=== PATIENT | female | born 1995 | race Hispanic/Latino ===

== ENCOUNTER 2022-10-29 09:10 | Inpatient (IN) | payer SELFPAY ==
[2022-10-29] VITALS (16 sets, daily range): BP systolic 94–135; BP diastolic 53–86; PULSE 59–77; RESP 14–18; TEMP 36.2–36.9; O2SAT 96–100; BMI 27.6
[2022-10-29] MEDS: Lactated Ringers 1,000 ML 999 ML IV (10:15)
--- NOTE | 2022-10-29 10:48 | NURSING ---
Aye [id number]
--- NOTE | 2022-10-29 10:49 | NURSING ---
Emmett [id number]
[2022-10-29] MEDS: Acetaminophen 500 MG Tablet 1000 MG PO ×2 (10:53→18:20)
[2022-10-29 10:58] LABS: Absolute Lymphocyte Count 1.65 X10^3/uL (0.83-4.51); Absolute Neutrophil Count 4.2 X10^3/uL (2.0-7.7); Basophil# 0.02 X10^3/uL; Basophil% 0.3 % (0-1); Eosinophil# 0.08 X10^3/uL; Eosinophils% 1.2 % (0-5); Hematocrit 30.7 % (37-47); Hemoglobin 9.7 g/dL (12.0-15.0); Lymphocyte # 1.65 X10^3/ul (0.83-4.51); Lymphocyte % 25.7 % (19-41); Mean Corp Hgb Conc 31.6 g/dL (32-36); Mean Corpuscular Hgb 26.4 pg (27.0-32.0); Mean Corpuscular Volume 83.4 fL (81-99); Mean Platelet Vol. 12.3 fl (6.2-12.0); Monocyte# 0.43 X10^3/uL; Monocyte% 6.7 % (0-10); NRBC Flagged by Analyzer 0 % (0-5); Neutrophil # 4.23 X10^3/uL (2.7-7.7); Neutrophil % 65.8 % (47-70); Platelet Count 234 K/mm3 (150-450); RBC Distribution Width CV 13.6 % (11.6-14.6); RBC Distribution Width SD 40.7 fl (35.1-43.9); Red Blood Count 3.68 M/mm3 (4.2-5.4); White Blood Count 6.4 K/mm3 (4.4-11.0)
[2022-10-29] MEDS: Lactated Ringers 1,000 ML 150 ML IV (11:02)
[2022-10-29] MEDS: CLARIFY ORDER NOTE (11:03)
[2022-10-29] MEDS: Sodium Citrate/Citric Acid 30 ML UDC PO (11:59)
[2022-10-29 12:01] LABS: Syphilis Antibodies Non-reactive
[2022-10-29] MEDS: Cefazolin 2 GM in 0.9% Normal Saline 100 ML IV (12:05)
--- NOTE | 2022-10-29 12:10 | PCM.HP.BLA ---
History and Physical Date of Admission: 10/29/22 PROBLEM: repeat section, cholestasis of , request for sterilization ? PAST SURGICAL HISTORY: PAST SURGICAL HISTORYExpand by Default PAST SURGICAL HISTORY Procedure Laterality Date ? DELIVERY ONLY ? ? ? x3 ? ? PAST MEDICAL HISTORY: PAST MEDICAL HISTORYExpand by Default PAST MEDICAL HISTORY Diagnosis Date ? Essential hypertension ? ? Pt reports diagnosed in [facility]? - never on blood pressure medication ? ? SUBJECTIVE: Having pruritis. No ctx, vb, lof. Good FM ? SOCIAL HISTORY: SOCIAL HISTORYExpand by Default Social History ? Tobacco Use ? Smoking status: Never ? Smokeless tobacco: Never Vaping Use ? Vaping Use: Never used Substance Use Topics ? Alcohol use: Not Currently ? Drug use: Never ? ? ALLERGIESExpand by Default ALLERGIES No Known Allergies ? Current Outpatient Medications on File Prior to Visit Medication Sig ? hydrOXYzine HCl (ATARAX) 25 mg tablet Take 1 tablet by mouth three times daily as needed. ? ferrous sulfate 325 mg (65 mg iron) tablet Take 1 tablet by mouth every other day. ? vit/iron fum/folic ac ( 1 + 1 ORAL) Take by mouth. ? No current facility-administered medications on file prior to visit. ? ? OBJECTIVE: ? VITALS: BP 110/74 Wt 141 lb (64 kg) LMP 02/09/2022 BMI 31.61 kg/m? ? HEENT: Normocephalic, atraumatic, Mucus membranes moist without lesions. ? NECK: Soft and Supple. No adenopathy , thyromegaly or bruits. ? SKIN: No lesions. ? CHEST: Clear to auscultation. No wheezes or rales. Good air exchange. ? HEART: Regular rate and rhythm No S3 or S4. No gallops or rubs. ? BACK: Nontender with no CVA tenderness. ? ABDOMEN: Soft, non-tender, non-distended, no masses, no hepatosplenomegaly. ? LOWER EXTREMITIES: There was no pitting edema, no palpable cords and no skin changes. ? ? ? ASSESSMENT: 37 week gestation, single IUP, cholestasis of , history prior section, request for sterilization ? PLAN: 1) Discussed repeat section with sterilization. Patient desires sterilization and understands it is permanent, and there is a risk of regret. Discussed cholestasis of and risk of delivery at 37 weeks given early term, and questions answered. Recommend delivery 37-38 weeks given cholestasis. The rationale for the proposed surgery was discussed in addition to risks, benefits, and alternatives. General pre- and post-operative care was reviewed. Questions were answered. After discussion, the patient indicated a desire to proceed with the planned surgery. ? Jennifer Rangel, DO Assessment & Plan Assessment/Plan (1) 37 weeks gestation of : (2) Request for sterilization: (3) Cholestasis during :
--- NOTE | 2022-10-29 12:39 | FALS_PTH ---
PATIENT: JOSEFINA SUHAACCT #:[id number] LOC: WP U#:[id number] AGE/SX: 26/F ROOM: WP006 RE10/29/[address]: Dr. Jennifer Rangel DO : 1995 BED: 1 DIS: 10/31/2022 SPEC #: [id number] RECD: 10/29/22 16:44 STATUS: LIZET ELIAN #: [id number] OSWALDO: 10/29/22 12:[address]: Jennifer Rangel DEPT: SURGICAL PATHOLOGY RECD BY: Vee Burden ENTERED: 11/01/22 07:11 SP TYPE: FALL TUBES OTHR DR: No Primary Care Phys Tissues: Fallopian tube Procedures: Surgery Specimen Level II HEADER OPERATION: Tubal ligation PRE-OP DIAGNOSIS: Sterilization TISSUE SUBMITTED: Fallopian tubes, suture in right tube MICROSCOPIC DIAGNOSIS Right fallopian tube, salpingectomy: Complete cross-sections of fallopian tube with no pathologic change. Left fallopian tube, salpingectomy: Complete cross-sections of fallopian tube with no pathologic change. AM:fernandez 11/02/2022 MICROSCOPIC DESCRIPTION Slides are reviewed. GROSS DESCRIPTION Received in fixative is one container labeled with the patient's name and designated bilateral fallopian tubes, suture in right tube. The specimen consists of bilateral fallopian tubes including fimbrial ends each measuring 7.0 cm in length and 0.5 cm in diameter. Sections reveal unremarkable cut surfaces. University Administrative Assistant sections are submitted in two cassettes as follows: 1 - right fallopian tube, 2 - left fallopian tube. / SJ:fernandez 11/01/2022 TC:4 CPT: 39720 x2
--- NOTE | 2022-10-29 13:40 | OP.PCM_ITS ---
Problems Associated Problem List Diagnoses (1) Cholestasis during : (2) Previous section: (3) Request for sterilization: (4) 37 weeks gestation of : Report of Operation Date of Procedure: 10/29/22 Pre-Operative Diagnosis: 37 week gestation, single IUP, history 3 prior sections, cholestasis in , request for sterilization Post-Operative Diagnosis: As above Surgery/Procedure Performed:: RLTCS via pfannensiel incision Bilateral salpingectomy Description of Surgical Findings:: VFI in cephalic presentation. Clear fluid. Normal appearing uterus and bilateral fallopian tubes. Normal appearing right ovary. Left ovary with dermoid cyst about 3 cm in size. Apgars 8, 9. Normal placenta with 3 VC. Moderate adhesive disease. Loose nuchal cord x 1. Surgeon: Jennifer Rangel customer contact sales associate: Abhijeet CASAREZ Type of Anesthesia: Spinal Special Medications: None Specimen's removed: Placenta Bilateral fallopian tubes Drains: Conley Estimated Blood Loss (mL): 900 Fluids Replaced: 1100 mL Description of Procedure: The patient was taken to the operating room where spinal anesthesia was adequate. She was prepped and draped in the dorsal position with a leftward tilt. A Pfannenstiel skin incision was made with a scalpel and this was carried down to the underlying layer of fascia. The fascia was incised in the midline. The fascia was dense and significantly adhered to the rectus muscles. The fascia was extended laterally using Colón scissors. The fascia was minimally dissected in a cephalad and caudad direction off of the rectus muscles. The rectus muscles were adhered in the midline. The rectus muscles were using a combination of sharp and blunt dissection. The peritoneum was entered bluntly with good visualization of the bladder. The peritoneal incision was extended bluntly using traction laterally. A bladder blade was inserted. A low transverse incision was made on the uterus with a scalpel. This incision was extended with traction cephalad and caudad. Membranes were ruptured for clear fluid with an Allis. The head of the was flexed and delivered through the hysterotomy. A loose nuchal cord x1 was noted and reduced. The body of the was delivered without any force or delay. A vigorous viable female infant was delivered atraumatically. The cord was clamped and cut after slight delay. The was handed off to the waiting nursery staff. The placenta was removed with manual extraction. The uterus was exteriorized. The uterus was cleared of all clot and debris. The hysterotomy was closed with 1-0 Vicryl in a running locked fashion. Several additional ggrvro-gy-nqysb sutures were made for hemostasis. The right fallopian tube was then followed out to the fimbriated end and elevated. Using the LigaSure device the mesosalpinx was serially clamped, cauterized, and transected hugging adjacent to the right fallopian tube until reaching level of the cornua. Once at the level of the cornua the right fallopian tube was transected. The same was performed on the left side to the left fallopian tube. The left fallopian tube was elevated and the LigaSure device was used to serially clamped, cauterized, and transected along the mesosalpinx until reaching level of the cornua, and at that point the fallopian tube was transected. A 3 cm left-sided dermoid cyst was noted, and the decision was made to not proceed with a cystectomy or removal given vascularity to the adnexa. The uterus was placed back into the abdomen. The hysterotomy was noted to be hemostatic. On the left lateral edge of the rectus muscles there was bleeding noted. 2 pwyjas-ki-yfxpl stitches were placed using 3-0 Vicryl for hemostasis. On the right lateral edge of the rectus muscles there was bleeding noted. A single oxcgvj-tz-ewhbr stitch was placed using 3-0 Vicryl for hemostasis. Abad was placed over the hysterotomy and lower uterine segment. Abad was placed over the rectus muscles as well. The fascia was closed with strata fix in a running fashion. Subcutaneous space was noted to be oozing. The subcutaneous space was irrigated. Hemostasis was achieved using Bovie cautery. Subcutaneous space was reapproximated using 3-0 Vicryl. The skin was closed in a subcuticular fashion using 4-0 Monocryl. A dressing was placed. Instrument, sharp, sponge counts were correct. The patient was taken to the recovery room in stable condition. The clinic office assistant was present for the entire case and assisted with draping the patient, delivery of the , and closure. Grafts/Implants Used: None Procedure Start Time: 12:27 Procedure Stop Time: 13:30 Complications None Admit VTE Documentation VTE Present on Admission: No VTE Mechan Device Prophylaxis: SCD's
[2022-10-29] MEDS: Oxytocin 15 Units/NS 250ml 15 UNITS/250 ML IV.SOLN 83 UNITS IV (14:10)
--- NOTE | 2022-10-29 15:23 | NURSING ---
Michel [id number]
--- NOTE | 2022-10-29 15:25 | NURSING ---
used by Olga Nash CRNA from anesthesia
[2022-10-29 15:40] LABS: Pathology Specimen OB SEE PATHOLOGY REPORT
[2022-10-29] MEDS: Lactated Ringers 1,000 ML 100 ML IV (17:22)
[2022-10-29] MEDS: Ketorolac 30 MG/ML Syringe IV (18:20)
--- NOTE | 2022-10-29 21:53 | NURSING ---
gas examiner Laila #[id number].
--- NOTE | 2022-10-29 22:32 | NURSING ---
alligator shear operator #[id number] anuj.
[2022-10-30] VITALS (8 sets, daily range): BP systolic 80–108; BP diastolic 36–62; PULSE 74–93; RESP 16–18; TEMP 36–36.6; O2SAT 96–98
[2022-10-30] MEDS: Ketorolac 30 MG/ML Syringe IV ×3 (00:06→12:38)
[2022-10-30] MEDS: Acetaminophen 500 MG Tablet 1000 MG PO ×4 (00:06→18:27)
--- NOTE | 2022-10-30 01:14 | NURSING ---
report given to susan DE LA ROSA . that rn to assume care of pt at this time.
[2022-10-30] MEDS: Lactated Ringers 1,000 ML 100 ML IV (03:37)
[2022-10-30 06:19] LABS: Hematocrit 21.4 % (37-47); Hemoglobin 6.9 g/dL (12.0-15.0); Mean Corp Hgb Conc 32.2 g/dL (32-36); Mean Corpuscular Volume 83.6 fL (81-99); Platelet Count 193 K/mm3 (150-450); RBC Distribution Width CV 13.8 % (11.6-14.6); RBC Distribution Width SD 41.5 fl (35.1-43.9); Red Blood Count 2.56 M/mm3 (4.2-5.4); White Blood Count 7.8 K/mm3 (4.4-11.0)
[2022-10-30] MEDS: Lactated Ringers 1,000 ML 999 ML IV (06:49)
--- NOTE | 2022-10-30 08:30 | NURSING ---
Risk Assessment Consultant [id number] used.
[2022-10-30] MEDS: Senna/Docusate Sodium 1 Tablet PO (10:33)
--- NOTE | 2022-10-30 15:39 | PCM.PN.OB ---
Subjective Subjective Denies complaints Objective Data Objective Data Vital Signs: Vital Signs Temp Pulse Resp BP Pulse Ox O2 Del Method 97.4 F L 79 16 94/45 L 96 Room Air 10/30/22 11:15 10/30/22 11:15 10/30/22 11:15 10/30/22 11:15 10/30/22 11:15 10/30/22 11:15 Oxygen Delivery Method Room Air Weight: 141 lb 8 oz Body Mass Index (BMI) 27.6 Intake & Output: Intake and Output for Last 24 Hours 10/28/22 10/29/22 10/30/22 23:59 23:59 23:59 Intake Total 3310.0 / 3310.0 3110 / 3110 Output Total 1550 / 1550 775 / 775 Balance 1760.0 / 1760.0 2335 / 2335 Lab / Micro Data 10/30/22 06:06 Labs: Laboratory Results - last 24 hr 10/30/22 06:06: WBC 7.8, RBC 2.56 L, Hgb 6.9 L, Hct 21.4 L, MCV 83.6, MCH 27.0, MCHC 32.2, RDW Std Deviation 41.5, RDW Coeff of [place] 13.8, Plt Count 193, MPV 12.0 Physical Exam Const alert, oriented x3 and no apparent distress HEENT normocephalic GI soft to palpation, non-tender and non-distended GI Narrative: fundus firm, mid & below umbilicus Incision - bandage c/d/i Extremity normal to inspection and no calf tenderness Assessment & Plan (1) Previous section: COMMENT: POD#1 (2) Request for sterilization: (3) Anemia: QUALIFIERS: Iron deficiency anemia type: unspecified iron deficiency Anemia type: iron deficiency Qualified Code(s): D50.9 - Iron deficiency anemia, unspecified PLAN: Plan Heme - HDS. s/p 1 dose IV iron for anemia. Repeat cbc today at 4pm. ID - AF, no signs infection GI/ - no issues Routine PP care
[2022-10-30 16:15] LABS: Absolute Lymphocyte Count 1.46 X10^3/uL (0.83-4.51); Absolute Neutrophil Count 6.4 X10^3/uL (2.0-7.7); Basophil# 0.02 X10^3/uL; Basophil% 0.2 % (0-1); Eosinophil# 0.06 X10^3/uL; Eosinophils% 0.7 % (0-5); Hematocrit 21.5 % (37-47); Hemoglobin 6.8 g/dL (12.0-15.0); Lymphocyte # 1.46 X10^3/ul (0.83-4.51); Lymphocyte % 17.2 % (19-41); Mean Corp Hgb Conc 31.6 g/dL (32-36); Mean Corpuscular Hgb 26.9 pg (27.0-32.0); Mean Platelet Vol. 11.8 fl (6.2-12.0); Monocyte% 5.9 % (0-10); NRBC Flagged by Analyzer 0 % (0-5); Neutrophil # 6.41 X10^3/uL (2.7-7.7); Neutrophil % 75.8 % (47-70); Platelet Count 188 K/mm3 (150-450); RBC Distribution Width CV 13.8 % (11.6-14.6); RBC Distribution Width SD 42.8 fl (35.1-43.9); Red Blood Count 2.53 M/mm3 (4.2-5.4); White Blood Count 8.5 K/mm3 (4.4-11.0)
[2022-10-30] MEDS: Ibuprofen 600 MG Tablet PO (18:27)
--- NOTE | 2022-10-30 21:03 | NURSING ---
at 2052 talked to dayo centeno with ID number [id number]
--- NOTE | 2022-10-30 23:04 | CASEMGMT ---
Social Work Assessment Labor and Delivery Unit Patient Address: [address] [place] [address] [facility] Phone number: [phone] Date of Referral: 10/29/2022 Time of Referral: 4:26 Referred By: Juan Carlos Date of Intervention: 10/30/2022? Time of Intervention:? 4:40 Reason for Referral:? Resources Photo Lab Manager: Mikal [id number] and Krista [id number], MOB/FOB Yakut speaking History obtained from: MOB, FOB, Med record Household composition: Three children of parents, nephew, and MOB?s brother and MOB/FOB Patient's parent/guardian status:? MOB and FOB are and report being together for 10 years. Medical History: MOB has 3 other children. MOB did not have care until 30 weeks primarily due to no health insurance. No medical concerns. Baby girl Laila Becker weighed 6.17 lbs, apgars 8/9. Educational Status: Denies concerns. MOB/FOB are Yakut speaking/reading. FOB knows some Nauruan. ? Financial Status: Denies concerns, gets no assistance and listed as self-pay. Supplies: MOB reports no needs and having all needed supplies. Childcare/Caregiver(s):? MOB/FOB and mother?s brother that resides with them. Transportation:? Reports adequate transportation. Programs/Agencies Involved: None. ??? Children Services/Legal Issues: Denies. Behavioral Health Issues: MOB denies any mental health or substance abuse history. Denies family mental health concerns. Family/Social Stressors: Denies concerns. ? Support Systems: ROXANA reports her brother as supportive. Depression Provided education and gave Yakut resources. Shaken Baby Provided education, parents report understanding Safe Sleeping Provided education, parents report understanding ASSESSMENT:? MOB/FOB Yakut speaking. FOB knows some Nauruan. Manager Water [employer] used throughout assessment. Parents are self-pay. Discussed Medicaid with parents. Provided resource lists and reviewed JFS info for Medicaid. Provided PPD info. Provided info [place]akut. [place] application sent for patient after assessment. Parents expressed no concerns except for no insurance. MOB had lack of care until 30 weeks. MOB had no insurance. Parents responded appropriately. PLAN:? No other services requested or indicated. Dayna Cruz ROUTE CARRIER, TELEPHONE ORDER CLERK ROOM SERVICE
[2022-10-31] VITALS (7 sets, daily range): BP systolic 98–108; BP diastolic 53–68; PULSE 65–78; RESP 16; TEMP 36.3–36.8; O2SAT 97–98
[2022-10-31] MEDS: Acetaminophen 500 MG Tablet 1000 MG PO ×3 (00:30→12:05)
[2022-10-31] MEDS: 0.9% Saline Lock 10 ML Syringe IV ×3 (00:30→12:55)
[2022-10-31] MEDS: Ibuprofen 600 MG Tablet PO ×3 (00:31→12:04)
[2022-10-31 06:17] LABS: Absolute Lymphocyte Count 2.26 X10^3/uL (0.83-4.51); Absolute Neutrophil Count 6.1 X10^3/uL (2.0-7.7); Basophil# 0.02 X10^3/uL; Basophil% 0.2 % (0-1); Eosinophil# 0.21 X10^3/uL; Eosinophils% 2.3 % (0-5); Hematocrit 20.8 % (37-47); Hemoglobin 6.5 g/dL (12.0-15.0); Lymphocyte # 2.26 X10^3/ul (0.83-4.51); Lymphocyte % 24.9 % (19-41); Mean Corp Hgb Conc 31.3 g/dL (32-36); Mean Corpuscular Hgb 26.7 pg (27.0-32.0); Mean Corpuscular Volume 85.6 fL (81-99); Mean Platelet Vol. 11.4 fl (6.2-12.0); Monocyte% 4.4 % (0-10); NRBC Flagged by Analyzer 0 % (0-5); Neutrophil # 6.14 X10^3/uL (2.7-7.7); Neutrophil % 67.6 % (47-70); Platelet Count 187 K/mm3 (150-450); RBC Distribution Width CV 13.8 % (11.6-14.6); RBC Distribution Width SD 42.5 fl (35.1-43.9); Red Blood Count 2.43 M/mm3 (4.2-5.4); White Blood Count 9.1 K/mm3 (4.4-11.0)
--- NOTE | 2022-10-31 07:49 | NURSING ---
boom conveyor operator at 0612 was peterson [id number] and at 0704 krista [id number]
--- NOTE | 2022-10-31 10:27 | NURSING ---
Harvey [id number]
[2022-10-31] MEDS: Senna/Docusate Sodium 1 Tablet PO (12:04)
[2022-10-31 15:12] LABS: Hematocrit 25.8 % (37-47); Hemoglobin 8.3 g/dL (12.0-15.0); Mean Corp Hgb Conc 32.2 g/dL (32-36); Mean Corpuscular Hgb 27.5 pg (27.0-32.0); Mean Corpuscular Volume 85.4 fL (81-99); Mean Platelet Vol. 11.7 fl (6.2-12.0); Platelet Count 208 K/mm3 (150-450); RBC Distribution Width CV 14.1 % (11.6-14.6); RBC Distribution Width SD 43.4 fl (35.1-43.9); Red Blood Count 3.02 M/mm3 (4.2-5.4); White Blood Count 10.5 K/mm3 (4.4-11.0)
--- NOTE | 2022-10-31 15:20 | DCINST_ITS ---
Discharge Instructions Diet Discharge Diet: No restrictions Activity Discharge Activity: May Shower May resume sexual activity in: 6 weeks Weight Bearing Status: Weight bearing as tolerated Dressing / Incision Call your doctor if your incision/area has: Continuous Slow Oozing, Sudden Increased Bleeding, Increased Pain/ Swelling, Increased Redness, Foul Smelling Discharge and Swelling at the incision site Call your doctor if you observe: Fever of 101 or Higher, Coldness, Increased Pain, Change in Color, Inability to urinate, Inability to have a bowel movement, Using more than 1 pad per hour, Shortness of breath, Dizziness, Fainting spells, Chest pain, Increased palpitations (irregular heartbeat), Calf discomfort and Uncontrolled pain Suture Line Care: Avoid Pulling/Pushing and Avoid Pinching/Bending Remove Dressing in: 1 week Cleanse incision/area with: Soap & Water Follow Up Care Please Follow Up With: Jennifer Rangel DO When: Follow up in 2 and 6 weeks for visits. Test Results: Test results from this visit will be discussed in further detail at your follow- up appointment, if applicable. Discharge Plan Admission Admit Date/Time: 10/29/22 09:10 Attending Provider: Jennifer Rangel Primary Care Provider: Care PhysicianTiffanie Primary Discharge Orders/Prescriptions Prescriptions: New acetaminophen 500 mg Tablet 1,000 mg PO Q6 Qty: 0 0RF ibuprofen 600 mg Tablet 600 mg PO Q6H Qty: 0 0RF Continued ferrous sulfate [iron] 325 mg (65 mg iron) tablet 325 mg PO DAILY PNV cmb#[id number]-ferrous fumarate-FA [] 28 mg iron- 800 mcg tablet 1 tab PO DAILY hydroxyzine HCl 25 mg tablet 25 mg PO .COMPLEX Patient Comments: Take 1 tablet by mouth three times daily as needed. Rx Instructions: 25 mg orally see comments; Referrals / Follow Up: Care PhysicianTiffanie Primary [Primary Care Provider] - Disposition Disposition (needs filled in before D/C Order can be placed): Home, Self Care
--- NOTE | 2022-10-31 15:22 | PCM.PN.OB ---
Subjective Subjective Denies feeling light headed or other concerns. Objective Data Objective Data Vital Signs: Vital Signs Temp Pulse Resp BP Pulse Ox O2 Del Method 97.9 F 65 16 100/67 98 Room Air 10/31/22 15:07 10/31/22 15:07 10/31/22 15:07 10/31/22 15:07 10/31/22 15:07 10/31/22 15:07 Oxygen Delivery Method Room Air Weight: 141 lb 8 oz Body Mass Index (BMI) 27.6 Intake & Output: Intake and Output for Last 24 Hours 10/29/22 10/30/22 10/31/22 23:59 23:59 23:59 Intake Total 3310.0 / 3310.0 3110 / 3110 0 / 0 Output Total 1550 / 1550 1325 / 1325 Balance 1760.0 / 1760.0 1785 / 1785 0 / 0 Lab / Micro Data 10/31/22 15:05 Labs: Laboratory Results - last 24 hr 10/29/22 10:15: Crossmatch See Detail 10/30/22 16:08: WBC 8.5, RBC 2.53 L, Hgb 6.8 L, Hct 21.5 L, MCV 85.0, MCH 26.9 L, MCHC 31.6 L, RDW Std Deviation 42.8, RDW Coeff of [place] 13.8, Plt Count 188, MPV 11.8, Immature Gran % (Auto) 0.200, Neut % (Auto) 75.8 H, Lymph % (Auto) 17.2 L, Whitman % (Auto) 5.9, Eos % (Auto) 0.7, Baso % (Auto) 0.2, Absolute Neuts (auto) 6.4, Absolute Lymphs (auto) 1.46, Nucleated RBC % 0 10/31/22 06:05: WBC 9.1, RBC 2.43 L, Hgb 6.5 L, Hct 20.8 L, MCV 85.6, MCH 26.7 L, MCHC 31.3 L, RDW Std Deviation 42.5, RDW Coeff of [place] 13.8, Plt Count 187, MPV 11.4, Immature Gran % (Auto) 0.600, Neut % (Auto) 67.6, Lymph % (Auto) 24.9, Whitman % (Auto) 4.4, Eos % (Auto) 2.3, Baso % (Auto) 0.2, Absolute Neuts (auto) 6.1, Absolute Lymphs (auto) 2.26, Nucleated RBC % 0 10/31/22 15:05: WBC 10.5, RBC 3.02 L, Hgb 8.3 L, Hct 25.8 L, MCV 85.4, MCH 27.5, MCHC 32.2, RDW Std Deviation 43.4, RDW Coeff of [place] 14.1, Plt Count 208, MPV 11.7 Physical Exam Const alert, oriented x3 and no apparent distress HEENT normocephalic GI soft to palpation, non-tender and non-distended GI Narrative: fundus firm, mid & below umbilicus Incision - bandage c/d/i Extremity normal to inspection and no calf tenderness Assessment & Plan (1) Previous section: COMMENT: POD#2 (2) Anemia: QUALIFIERS: Anemia type: iron deficiency Iron deficiency anemia type: unspecified iron deficiency Qualified Code(s): D50.9 - Iron deficiency anemia, unspecified PLAN: Plan Heme - HDS. s/p 1 unit PRBC's with appropriate rise in Hb. continue iron upon discharge. Plan to discharge home per patient request
== END 2022-10-31 16:35 | disposition home or self-care (01) | DRG 796 ==
PROVIDERS: Obstetrics & Gynecology; Admitting Provider Obstetrics & Gynecology; Referring Provider Obstetrics & Gynecology; Visit Provider Obstetrics & Gynecology
PROC: 0UT70ZZ Resection of Bilateral Fallopian Tubes, Open Approach (ICD-10-PCS; CPT 59514; principal; 2022-10-29 11:45)
DX: O34.219 Maternal care for unspecified type scar from previous cesarean delivery (principal); Z37.0 Single live birth; K83.1 Obstruction of bile duct; O26.62 Liver and biliary tract disorders in childbirth; O99.893 Other specified diseases and conditions complicating puerperium; D50.9 Iron deficiency anemia, unspecified; D27.1 Benign neoplasm of left ovary; Z30.2 Encounter for sterilization; O99.02 Anemia complicating childbirth; Z3A.37 37 weeks gestation of pregnancy; O69.81X0 Labor and delivery complicated by cord around neck, without compression, not applicable or unspecified
CPT/HCPCS: 59025; 59050; 85025; 85027; 86780; 86850; 86900; 86901; 86920; 88302; 99221; J1756; J7120; P9016; A4216; G0378; J2405